=== PATIENT | male | born 1970 | race Asian ===

== ENCOUNTER 2017-12-24 10:12 | Emergency (ER) | payer OTHER ==
[~2017-12-24] VITALS: Ht 170.2 cm; Wt 104.3 kg
[2017-12-24 11:05] LABS: PLATELET COUNT 172 K/uL (142-355); POTASSIUM 3.5 mmol/L (3.6-5.2)
[2017-12-24 11:58] VITALS: BP 129/75; TEMP 97.2
== END 2017-12-24 12:12 | disposition home or self-care (01) ==
LOC: ED 10:12
DX: R07.89 Other chest pain (principal); S29.011A Strain of muscle and tendon of front wall of thorax, initial encounter; X50.0XXA Overexertion from strenuous movement or load, initial encounter
CPT/HCPCS: 36415; 80053; 81000; 82550; 82553; 84484; 85027; 93005; 99284